=== PATIENT | female | born 2005 | race Caucasian/White ===

== ENCOUNTER 2023-12-21 21:22 | Emergency (ER) | payer BC, SELFPAY ==
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
[2023-12-21 21:29] VITALS: BP 146/81; PULSE 110; RESP 20; TEMP 38; O2SAT 97; BMI 24.9
--- NOTE | 2023-12-21 21:35 | PC.NURSE ---
computer technology trainer to main ED s/p triaging patient to discuss order needs with MD. MD Roque's aware of case and new orders entered for imaging.
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
[2023-12-21] MEDS: Oxymetazoline HCl 0.05 % Nasal 15 ML SPRAY 2 SPRAY NOSTRIL-B (23:21)
[2023-12-22 00:06] VITALS: BP 136/71; PULSE 88; RESP 16; TEMP 37; O2SAT 97
[2023-12-22] MEDS: Tranexamic Acid 1,000 MG/10 ML VIAL 500 MG INTRANASAL (00:52)
[2023-12-22] MEDS: Amoxicillin/Potassium Clav 500 MG TABLET PO (01:54)
[2023-12-22 01:59] VITALS: BP 113/81; PULSE 82; RESP 18; TEMP 37; O2SAT 97
== END 2023-12-22 02:00 | disposition home or self-care (01) ==
PROVIDERS: Emergency Provider Emergency Medicine
DX: S02.2XXA Fracture of nasal bones, initial encounter for closed fracture (principal); R04.0 Epistaxis; W50.0XXA Accidental hit or strike by another person, initial encounter; Y93.9 Activity, unspecified; Y92.89 Other specified places as the place of occurrence of the external cause; Y99.9 Unspecified external cause status
CPT/HCPCS: 70450; 70486; 99284